=== PATIENT | female | born 1980 | race Caucasian/White ===

== ENCOUNTER 2016-08-26 05:34 | Day surgery (SDC) | payer MEDICAID ==
--- NOTE | 2016-08-25 19:01 | PREOPHP ---
DATE OF ADMISSION: 08/26/2016 HISTORY OF PRESENT ILLNESS: Ms. Peck ____ is a 36-year-old G2, P2, desires permanent surgical sterilization. MEDICAL HISTORY: None. MEDICATIONS: None. PAST SURGICAL HISTORY: x1. OBSTETRICAL HISTORY: x1, vaginal delivery x1. GYNECOLOGIC HISTORY: [age], regular, 3 to 4 days. Denies any sexually transmitted diseases. Sexually active with 1 partner. SOCIAL HISTORY: Denies any smoking, drugs or alcohol. FAMILY HISTORY: None. PHYSICAL EXAMINATION: HEENT: Within normal. LUNGS: CTA bilateral. CARDIOVASCULAR: S1, S2. Regular rhythm. ABDOMEN: Soft, nontender. Negative mass. Negative distention. EXTREMITIES: Negative edema. No calf tenderness. VAGINAL: Normal external genitalia. Cervix: Negative CMT, negative lesions. Adnexa: Negative mass, nontender bilateral. Fundus within normal limits. ASSESSMENT: Multiparity, desires permanent surgical sterilization. PLAN: Consent for hysteroscopic tubal occlusion by Essure implant with possible laparoscopic bilateral tubal sterilization. Risks, benefits and alternatives explained. All questions were answered. Dictated By: HEBER CAMPBELL/JACK Conf#: [id number] DID#: [id number] Case was cancelled today 08/26/16. Patient now only desire an elective laparoscopic tubal sterilization. patient will call clinic and reschedule with an assist md available. DENNIS
[~2016-08-26] VITALS: Ht 152.4 cm; Wt 60.0 kg
[~2016-08-26 05:34] MED LIST: PREN1TAB49 PO
[2016-08-26 07:01] LABS: BASOPHILS % 0.5 % (0.0-2.0); EOSINOPHILS # 0.1 10^3/ul (0.0-0.5); EOSINOPHILS % 2.1 % (0.0-7.0); HEMATOCRIT 38.1 % (37.0-47.0); HEMOGLOBIN 12.9 g/dl (12.0-16.0); LYMPHOCYTES # 2.1 10^3/ul (0.8-2.9); LYMPHOCYTES % 30.4 % (15.0-51.0); MEAN CORPUSCULAR HEMOGLOBIN 28.8 pg (29.0-33.0); MEAN CORPUSCULAR HGB CONC 33.9 g/dl (32.0-37.0); MEAN CORPUSCULAR VOLUME 85.2 fl (82.0-101.0); MEAN PLATELET VOLUME 9.3 fl (7.4-10.4); MONOCYTE # 0.4 10^3/ul (0.3-0.9); MONOCYTES % 6.2 % (0.0-11.0); NEUTROPHIL # 4.2 10^3/ul (1.6-7.5); NEUTROPHILS % 60.8 % (39.0-77.0); PLATELET COUNT 174 10^3/UL (140-440); RED BLOOD COUNT 4.48 10^6/ul (4.20-5.40); RED CELL DISTRIBUTION WIDTH 12.9 % (11.5-14.5); UNCORRECTED WBC 6.9 10^3/ul (4.8-10.8); WHITE BLOOD COUNT 6.9 10^3/ul (4.8-10.8)
[2016-08-26 07:05] LABS: CONDITION 1
[2016-08-26 07:22] VITALS: Ht 152.4 cm; Wt 60.0 kg
[2016-08-26] MEDS ORDERED: LACTATED RINGER'S 1,000 ML IV SCH (09:30)
== END 2016-08-26 07:27 | disposition home or self-care (01) ==
LOC: SDS 05:34
PROVIDERS: ATTEND Obstetrics & Gynecology
DX: Z30.2 Encounter for sterilization (principal); Z53.9 Procedure and treatment not carried out, unspecified reason
CPT/HCPCS: 84703; 85025; 86850; 86900; 86901; Z7610